=== PATIENT | female | born 1995 | race Caucasian/White ===

== ENCOUNTER 2020-02-11 13:03 | Outpatient (CLI) | payer BC | END 2020-02-11 13:04 | disposition home or self-care (01) | LOC: COV 13:03 | PROVIDERS: ATTEND Family Medicine | DX: U07.1 COVID-19 (principal) ==

== ENCOUNTER 2020-06-01 08:00 | Outpatient (CLI) | payer BC ==
--- NOTE | 2020-06-01 10:50 | XRAY Report ---
PROCEDURE: Toe(s) RT INDICATIONS: UNSPECIFIED INJURY OF R FOOT TECHNIQUE: 2 views of the right great toe(s) acquired. COMPARISON: None FINDINGS: Bones: No fractures or dislocations. No suspicious bony lesions. Soft tissues: No suspicious soft tissue densities. IMPRESSION: No acute right great toe fracture or dislocation. No suspicious bony lesion or gross soft tissue abno rmality. Reviewed by: Leandro Vang MD on 06/01/2020 10:49 AM [facility] Approved by: Leandro Vang MD on 06/01/2020 10:49 AM [facility] Station ID: [id number]
== END 2020-06-01 23:59 | disposition home or self-care (01) ==
LOC: DI.N 08:00
PROVIDERS: ATTEND Physician Assistant Medical
DX: S99.921A Unspecified injury of right foot, initial encounter (principal)